=== PATIENT | male | born 1990 | race African-American/Black ===

== ENCOUNTER 2021-03-23 20:27 | Emergency (ER) | payer SELFPAY ==
[~2021-03-23] VITALS: Ht 182.9 cm; Wt 82.0 kg
[2021-03-23 20:30] VITALS: BP 131/60
== END 2021-03-23 23:07 | disposition home or self-care (01) ==
LOC: ER 20:27
DX: K08.89 Other specified disorders of teeth and supporting structures (principal)
CPT/HCPCS: 99281